=== PATIENT | female | born 1980 | race Caucasian/White ===

== ENCOUNTER 2016-10-10 19:45 | Emergency (ER) | payer OTHER ==
[~2016-10-10] VITALS: Ht 162.6 cm; Wt 91.5 kg
[~2016-10-10 19:45] MED LIST: AMLO5TAB2 PO; DOCU240C31 PO; HYDR-3240 PO; HYDR2TAB29 PO; IBUP-1222 PO; IBUP800T PO; LISI1TAB5 PO; METR500T4 PO; OXYC1TAB7 PO
[2016-10-10] MEDS ORDERED: ASPIRIN 81 MG TABLET CHEW ONE (20:17)
[2016-10-10] MEDS ORDERED: ASPIRIN 81 MG TABLET CHEW PO ONE (20:30)
[2016-10-10 20:47] LABS: ASPARTATE AMINO TRANSFERASE 15 U/L (15-37); BLOOD UREA NITROGEN 14 mg/dL (7-18)
[2016-10-10 20:52] LABS: IS PT STATUS REG ER OR PRE ER? YES
[2016-10-10 21:35] VITALS: BP 148/102
== END 2016-10-10 22:04 | disposition home or self-care (01) ==
LOC: ED 21:58
DX: M94.0 Chondrocostal junction syndrome [Tietze] (principal); I10 Essential (primary) hypertension; E66.9 Obesity, unspecified
CPT/HCPCS: 36415; 71010; 80053; 84484; 85025; 93005; 99285

== ENCOUNTER 2019-03-04 14:08 | Emergency (ER) | payer BC, OTHER ==
[~2019-03-04] VITALS: Ht 162.6 cm; Wt 88.9 kg
[~2019-03-04 14:08] MED LIST changes: +AMLO-150 PO; -AMLO5TAB2 PO; +IBUP-1223 PO; -IBUP800T PO; +LISI1TAB19 PO; -LISI1TAB5 PO; +METR-90 PO; -METR500T4 PO
[2019-03-04 15:15] LABS: BASOPHILS % (AUTO) 1 % (0-1); EOSINOPHILS # (AUTO) 0.11 x10^3/uL (0-0.4); EOSINOPHILS % (AUTO) 1 % (1-7); LYMPHOCYTES # (AUTO) 2.37 x10^3/uL (1-3.4); LYMPHOCYTES % (AUTO) 29 % (22-44); MD NO; MEAN CORPUSCULAR HEMOGLOBIN 29.1 pg (27.0-34.8); MEAN CORPUSCULAR HGB CONC 33.3 g/dL (32.4-35.8); MEAN CORPUSCULAR VOLUME 87.3 fL (80-100); MEAN PLATELET VOLUME 7.1 fL (7.4-10.4); MONOCYTES # (AUTO) 0.58 x10^3/uL (0.2-0.8); MONOCYTES % (AUTO) 7 % (2-9); NEUTROPHILS # (AUTO) 5.13 x10^3/uL (1.8-6.8); NEUTROPHILS % (AUTO) 62 % (42-75); PLATELET COUNT 290 x10^3/uL (130-400); RED BLOOD COUNT 5.01 x10^6/uL (3.82-5.3); RED CELL DISTRIBUTION WIDTH 13.3 % (9.6-15.2)
[2019-03-04 15:22] LABS: ALANINE AMINOTRANSFERASE 39 U/L (12-78); ALBUMIN 3.8 g/dL (3.4-5.0); ANION GAP 4 mmol/L (5-15); CALCIUM 11.1 mg/dL (8.5-10.1); CHLORIDE 105 mmol/L (98-107)
--- NOTE | 2019-03-04 15:22 | NUR ---
clinical support specialist: Pt ambulatory to ED room 04 from lobby in [facility] at this time.
[2019-03-04 15:25] LABS: ALKALINE PHOSPHATASE 98 U/L (45-117); BILIRUBIN,TOTAL 0.6 mg/dL (0.2-1.0); CREATININE 0.88 mg/dL (0.55-1.02); TOTAL PROTEIN 7.9 g/dL (6.4-8.2)
--- NOTE | 2019-03-04 15:34 | NUR ---
PT HAVING INCREASED ABD PAIN, PT USUALLY HAS ABD CRAMPING AND NAUSEA, -VOMITTING. PT WITH HX CHRONS, SOMETIMES REQUIRING HOSPITALIZATION. PT TO BP, CONT PULSE OX. UA COLLECTED AND SENT
[2019-03-04 15:41] LABS: MICROSCOPIC AUTO
[2019-03-04 15:42] LABS: CULTURE INDICATED? YES
[2019-03-04] MEDS ORDERED: HYDROmorphone 1 MG/ML, 1ML VIAL ONE (15:52)
[2019-03-04] MEDS ORDERED: ONDANSETRON 2MG/ML, 2ML ONE (15:52)
[2019-03-04] MEDS ORDERED: HYDROmorphone 2 MG/ML, 1ML IVPush PRN (16:00)
[2019-03-04] MEDS ORDERED: SODIUM CHLORIDE FLUSH 10ML SYR IVF ONE (16:00)
[2019-03-04] MEDS ORDERED: ONDANSETRON 2MG/ML, 2ML IVPush ONE (16:00)
--- NOTE | 2019-03-04 16:10 | NUR ---
PIV INITITATED, PT MEDICATED PER MAY. PT TO GO TO CT
[2019-03-04] MEDS ORDERED: OMNIPAQUE 350 MG/ML, 100ML BOTTLE ONE (16:48)
[2019-03-04 17:02] VITALS: BP 139/84
--- NOTE | 2019-03-04 17:02 | NUR ---
PT RESTING ON GURNEY, S/O AT BEDSIDE, PT REQUESTING SIPS OF WATER, WILL NOTIFY PT PLACED FOR RECHECK
--- NOTE | 2019-03-04 17:08 | NUR ---
PT GIVEN WATER FOR PO CHALLENGE
== END 2019-03-04 18:08 | disposition home or self-care (01) ==
LOC: ED 17:51
DX: K50.00 Crohn's disease of small intestine without complications (principal); I10 Essential (primary) hypertension; F17.200 Nicotine dependence, unspecified, uncomplicated; E66.01 Morbid (severe) obesity due to excess calories; Z90.710 Acquired absence of both cervix and uterus; Z68.33 Body mass index [BMI] 33.0-33.9, adult
CPT/HCPCS: 36415; 74177; 80053; 81001; 83690; 85025; 87086; 96374; 96375; 99284; J1170; J2405; Q9967

== ENCOUNTER 2020-08-31 12:38 | Emergency (ER) | payer BC ==
[~2020-08-31] VITALS: Ht 165.1 cm; Wt 92.4 kg
[~2020-08-31 12:38] MED LIST changes: +HYDR-2214 PO; -HYDR-3240 PO; -LISI1TAB19 PO; +LISI1TAB39 PO; +OMNIPAQUE 350 MG/ML, 100ML BOTTLE ONE
--- NOTE | 2020-08-31 12:56 | NUR ---
RECEIVING INSPECTOR: CASH COLLECTED AND SENT TO LAB.
[2020-08-31 12:59] LABS: BASOPHILS % (AUTO) 1 % (0-1); EOSINOPHILS % (AUTO) 1 % (1-7); LYMPHOCYTES % (AUTO) 33 % (22-44); MEAN CORPUSCULAR HEMOGLOBIN 29.2 pg (27.0-34.8); MEAN CORPUSCULAR HGB CONC 34.7 g/dL (32.4-35.8); MONOCYTES % (AUTO) 7 % (2-9); NEUTROPHILS % (AUTO) 58 % (42-75); PLATELET COUNT 283 x10^3/uL (130-400); RED BLOOD COUNT 5.03 x10^6/uL (3.82-5.3); RED CELL DISTRIBUTION WIDTH 13.5 % (9.6-15.2)
[2020-08-31] MEDS ORDERED: SODIUM CHLORIDE FLUSH 10ML SYR IVF ONE (13:00)
[2020-08-31 13:02] LABS: MD NO
[2020-08-31 13:09] LABS: MICROSCOPIC NOT IND
[2020-08-31 13:10] LABS: ALBUMIN 3.7 g/dL (3.4-5.0); ANION GAP 5 mmol/L (5-15); CALCIUM 9.5 mg/dL (8.5-10.1); CHLORIDE 105 mmol/L (98-107)
[2020-08-31 13:16] LABS: ALANINE AMINOTRANSFERASE 36 U/L (12-78); ALKALINE PHOSPHATASE 86 U/L (45-117); BILIRUBIN,TOTAL 0.5 mg/dL (0.2-1.0); CREATININE 1.44 mg/dL (0.55-1.02); TOTAL PROTEIN 7.6 g/dL (6.4-8.2)
--- NOTE | 2020-08-31 14:10 | NUR ---
ELEVATED WORK PLATFORM OPERATOR: PT AMBULATORY TO ROOM FROM LOBBY AT THIS TIME
--- NOTE | 2020-08-31 14:17 | NUR ---
PATIENT WALKED BACK FROM LOBBY WITH CHIEF C/O LOWER ABD PAIN AND LUQ SINCE LAST SATURDAY. NAUSEA AND VOMITING, NO DIARRHEA. PATIENT CONNECTED TO MONITORS, VSS, CALL LIGHT WITHIN REACH.
[2020-08-31 15:48] VITALS: BP 140/70
--- NOTE | 2020-08-31 15:48 | NUR ---
POC IS DC. IV DC'D. PT OFF MONITORING AND UP TO DRESS
== END 2020-08-31 16:07 | disposition home or self-care (01) ==
LOC: ED 16:07
DX: R10.12 Left upper quadrant pain (principal); R11.2 Nausea with vomiting, unspecified; R19.7 Diarrhea, unspecified
CPT/HCPCS: 36415; 74177; 80053; 81003; 83690; 84703; 85025; 99285; Q9967